=== PATIENT | female | born 1975 ===

== ENCOUNTER 2019-11-27 14:03 | Emergency (ER) | payer OTHER ==
[~2019-11-27] VITALS: Ht 162.6 cm; Wt 96.2 kg
[~2019-11-27 14:03] MED LIST: PRINIVIL5 MG
[2019-11-27] MEDS ORDERED: ZITHROMAX500 MG PO (17:58)
[2019-11-27] MEDS ORDERED: DOLOGEN CAPLET1 EACH PO (17:58)
[2019-11-27] MEDS ORDERED: TUSNEL LIQUID178 ML PO (17:58)
== END 2019-11-27 18:12 | disposition home or self-care (01) ==
LOC: ER 14:03
DX: B34.9 Viral infection, unspecified (principal)